=== PATIENT | female | born 1960 | race Caucasian/White ===

== ENCOUNTER 2017-09-06 18:07 | Emergency (ER) | payer OTHER ==
--- NOTE | 2017-09-06 18:21 | EDM.PDOC ---
ED HPI GENERAL MEDICAL PROBLEM - General Stated Complaint: HEAVY BLEEDING Time Seen by Provider: 09/06/17 18:15 Source of Information: Reports: Patient - History of Present Illness INITIAL COMMENTS - FREE TEXT/NARRATIVE: HISTORY AND PHYSICAL: History of present illness: [Patient presents via EMS Today she had a procedure with Dr. carlson for removal of a varicose vein, on her return from [place] she stopped for a potluck dinner and the wound was bleeding, she placed a tourniquet on this herself to stop the bleeding, on EMS arrival she did have some bleeding and bloodsoaked bandages going through Mor wrap and gauze padding. Procedure was at 9 AM this morning EMS provided a tourniquet as well and she presents as such hemodynamically stable Tourniquet and bandaging is removed and wounds are nonbleeding at this time, bandaging replaced, I have ordered some lab we will observe the patient for a period to see if there is any rebleeding , certainly were bloodsoaked however, the tourniquets were not required. however , there was minimal amount of blood maybe a couple ounces or less of actual blood loss. Again patient arrives hemodynamically stable with no fever nausea vomiting diarrhea constipation chest pain shortness breath headache dizziness palpitation no bowel or urine symptoms Patient observed in the ER, no further blood loss Review of systems: As per history of present illness and below otherwise all systems reviewed and negative. Past medical history: As per history of present illness and as reviewed below otherwise noncontributory. Surgical history: As per history of present illness and as reviewed below otherwise noncontributory. Social history: No reported history of drug or alcohol abuse. Family history: As per history of present illness and as reviewed below otherwise noncontributory. Physical exam: HEENT: Atraumatic, normocephalic, pupils reactive, negative for conjunctival pallor or scleral icterus, mucous membranes moist, throat clear, neck supple, nontender, trachea midline. Lungs: Clear to auscultation, breath sounds equal bilaterally, chest nontender. Heart: S1S2, regular, negative for clicks, rubs, or JVD. Abdomen: Soft, nondistended, nontender. Negative for masses or hepatosplenomegaly. Negative for costovertebral tenderness. Pelvis: Stable nontender. Genitourinary: Deferred. Rectal: Deferred. Extremities: Atraumatic, negative for cords or calf pain. Neurovascular unremarkable. Neuro: Awake, alert, oriented. Cranial nerves II through XII unremarkable. Cerebellum unremarkable. Motor and sensory unremarkable throughout. Exam nonfocal. Skin right lower extremity anterior lateral thigh multiple small superficial incisions sub- 1 cm inch or less clean dry intact Steri-Strips intact with excellent approximation, wounds are nonbleeding at this time entire limb is neurovascularly intact pulse 2+ Diagnostics: [CBC, INR ] Therapeutics: [] Bandaging re- applied, new Mor wrap re-applied Impression: []Post varicose vein stripping Hemoglobin 14 Definitive disposition and diagnosis as appropriate pending reevaluation and review of above. - Related Data Allergies Allergy/AdvReac Type Severity Reaction Status Date / Time No Known Allergies Allergy Verified 09/06/17 18:25 Home Meds: Home Meds traZODone 150 mg PO BEDTIME 04/14/14 [History] Past Medical History Respiratory History: Reports: Other (See Below) Other Respiratory History: bronchitis Gastrointestinal History: Reports: Hepatitis, Other (See Below) Other Gastrointestinal History: occasional heartburn, hepatitis C in the past and has been treated Genitourinary History: Reports: None [employer]ESS[employer] History: Reports: Endocrine/Metabolic History: Reports: Obesity/BMI 30+ - Past Surgical History Head Surgeries/Procedures: Reports: None Female Surgical History: Reports: Hysterectomy Other Female Surgeries/Procedures: hx hysterectomy and bladder surgery Social & Family History - Family History Family Medical History: Noncontributory - Tobacco Use Smoking Status *Q: Former Smoker Month Tobacco Last Used: quit smoking over 4 yrs ago Second Hand Smoke Exposure: No - Alcohol Use Days Per Week of Alcohol Use: 0 - Recreational Drug Use Recreational Drug Use: No ED ROS GENERAL - Review of Systems Review Of Systems: ROS reveals no pertinent complaints other than HPI. ED EXAM, GENERAL - Physical Exam Exam: See Below Course - Vital Signs Last Recorded V/S: Last Vital Signs Temp 36.6 C 09/06/17 18:21 Pulse 113 H 09/06/17 18:21 Resp 18 09/06/17 18:21 BP 152/88 H 09/06/17 18:21 Pulse Ox 95 09/06/17 18:21 - Orders/Labs/Meds Orders: Active Orders 24 hr Category Date Time Status INR,PT,PROTHROMBIN TIME [COAG] Stat Lab 09/06/17 18:10 Received Labs: Laboratory Tests 09/06/17 Range/Units 18:10 WBC 6.13 (4.0-11.0) K/uL RBC 4.86 (4.30-5.90) M/uL Hgb 14.3 (12.0-16.0) g/dL Hct 42.6 (36.0-46.0) % MCV 87.7 (80.0-98.0) fL MCH 29.4 (27.0-32.0) pg MCHC 33.6 (31.0-37.0) g/dL RDW Std Deviation 45.3 (28.0-62.0) fl RDW Coeff of [place] 14 (11.0-15.0) % Plt Count 162 (150-400) K/uL MPV 12.20 H (7.40-12.00) fL Neut % (Auto) 73.4 (48.0-80.0) % Lymph % (Auto) 21.2 (16.0-40.0) % [place] % (Auto) 4.9 (0.0-15.0) % Eos % (Auto) 0.2 (0.0-7.0) % Baso % (Auto) 0.3 (0.0-1.5) % Neut # (Auto) 4.5 (1.4-5.7) K/uL Lymph # (Auto) 1.3 (0.6-2.4) K/uL [place] # (Auto) 0.3 (0.0-0.8) K/uL Eos # (Auto) 0.0 (0.0-0.7) K/uL Baso # (Auto) 0.0 (0.0-0.1) K/uL Nucleated RBC % 0.0 /100WBC Nucleated RBCs # 0 K/uL Departure - Departure Time of Disposition: 18:40 Disposition: Home, Self-Care 01 Condition: Good Clinical Impression: Bleeding - Discharge Information Additional Instructions: If bandaging becomes bloodsoaked change bandaging as needed Return if symptoms persist or worsen If significant bleeding develops again apply pressure and return to emergency room Follow-up with Dr. Carlson as scheduled The following information is given to patients seen in the emergency department who are being discharged to home. This information is to outline your options for follow-up care. We provide all patients seen in our emergency department with a follow-up referral. The need for follow-up, as well as the timing and circumstances, are variable depending upon the specifics of your emergency department visit. If you don't have a primary care physician on staff, we will provide you with a referral. We always advise you to contact your personal physician following an emergency department visit to inform them of the circumstance of the visit and for follow-up with them and/or the need for any referrals to a consulting specialist. The emergency department will also refer you to a specialist when appropriate. This referral assures that you have the opportunity for follow-up care with a specialist. All of these measure are taken in an effort to provide you with optimal care, which includes your follow-up. Under all circumstances we always encourage you to contact your private physician who remains a resource for coordinating your care. When calling for follow-up care, please make the office aware that this follow-up is from your recent emergency room visit. If for any reason you are refused follow-up, please contact the [facility] emergency department at and asked to speak to the emergency department charge nurse. - My Orders Last 24 Hours: My Active Orders 09/06/17 18:10 INR,PT,PROTHROMBIN TIME [COAG] Stat - Assessment/Plan Last 24 Hours: My Active Orders 09/06/17 18:10 INR,PT,PROTHROMBIN TIME [COAG] Stat
[2017-09-06 19:15] VITALS: BP 125/72
== END 2017-09-06 19:12 | disposition home or self-care (01) ==
LOC: MW.ED 18:07
DX: I97.618 Postprocedural hemorrhage of a circulatory system organ or structure following other circulatory system procedure (principal); E66.9 Obesity, unspecified; Z87.891 Personal history of nicotine dependence
CPT/HCPCS: 36415; 85025; 85610; 99284

== ENCOUNTER 2017-12-22 09:59 | Emergency (ER) | payer OTHER ==
--- NOTE | 2017-12-22 10:23 | EDM.PDOC ---
ED HPI GENERAL MEDICAL PROBLEM - General Chief Complaint: Genitourinary Problem Stated Complaint: KIDNEY Time Seen by Provider: 12/22/17 10:06 Source of Information: Reports: Patient History Limitations: Reports: No Limitations - History of Present Illness INITIAL COMMENTS - FREE TEXT/NARRATIVE: HISTORY AND PHYSICAL: History of present illness: Patient is a 57-year-old female who presents to the emergency room today with complaints of left flank pain. This has been going on for the past 3 days, reports it is worse when lying flat in bed. She does note some frequency with urination but denies dysuria. Denies any increased pain with flexion or extension twisting side to side. She does report that she slipped and fell on the ice approximately one week ago (didn't hit head, no LOC) but did not start having pain until the last 3 days. Denies any numbness or tingling to her lower extremities. Denies hematuria, fever or chills. No change in bowel pattern. Denies any chest pain, shortness of breath, abdominal pain, nausea, or vomiting. Review of systems: As per history of present illness and below otherwise all systems reviewed and negative. Past medical history: As per history of present illness and as reviewed below otherwise noncontributory. Surgical history: As per history of present illness and as reviewed below otherwise noncontributory. Social history: No reported history of drug or alcohol abuse. Family history: As per history of present illness and as reviewed below otherwise noncontributory. Physical exam: General: Nontoxic-appearing 57-year-old female. Alert and oriented. Appears in no acute distress. HEENT: Atraumatic, normocephalic, pupils reactive, negative for conjunctival pallor or scleral icterus, mucous membranes moist, throat clear, neck supple, nontender, trachea midline. Lungs: Clear to auscultation, breath sounds equal bilaterally, chest nontender. Heart: S1S2, regular, negative for clicks, rubs, or JVD. Abdomen: Soft, nondistended, nontender. Negative for masses or hepatosplenomegaly. Negative for costovertebral tenderness. Pelvis: Stable nontender. Genitourinary: Deferred. Rectal: Deferred. C-Spine/Back: Pinpoint vertebral tenderness upon palpation. Able to ambulate on heels and toes without difficulty. No change in urinary/bowel pattern. Extremities: Atraumatic, negative for cords or calf pain. Neurovascular unremarkable. Neuro: Awake, alert, oriented. Cranial nerves II through XII unremarkable. Cerebellum unremarkable. Motor and sensory unremarkable throughout. Exam nonfocal. Urinalysis is normal with no sign of a UTI. We'll do a CBC, CMP and a CT of the abdomen and pelvis to look for kidney stone. Patient states that as she got undressed and placed in a gown, she noticed some soft tissue swelling below the left flank. I am able to identify a slight diffuse area of soft tissue swelling (not firm), there is no bruising. Patient is agreeable to the labs and CT. CT of the abdomen and pelvis shows no kidney stone or obstructive uropathy and normal appendix. The CBC, CMP and UA are within normal limits as well. The results were shared with the patient. Will treat as a muscular strain. Discussed with patient that if she continues to have pain and discomfort that she should follow up with her primary care provider. She voices understanding and is agreeable to plan of care. Denies any questions at this time. Flexeril 10mg TID PRN (Disp #12) and Cataflam 50mg TID PRN (Disp #20) Diagnostics: UA, CBC, CMP, CT abd/pelvis w/o Therapeutics: IV fluid, toradol, Jackson Impression: #1 Left flank pain #2 Muscular Strain Plan: 1. Please take the medications as prescribed. May cause drowsiness so do not take while driving or needing to be functioning outside of work. Please apply gentle heat on and off throughout the day. 2. Follow-up with your primary care provider in the next couple days. Return to the ED as needed and as discussed. Definitive disposition and diagnosis as appropriate pending reevaluation and review of above. Duration: Day(s): Location: Reports: Back left flank Pain Score (Numeric/FACES): 8 - Related Data Allergies Allergy/AdvReac Type Severity Reaction Status Date / Time No Known Allergies Allergy Verified 12/22/17 10:29 Home Meds: Home Meds traZODone 150 mg PO BEDTIME 04/14/14 [History] metFORMIN [Glucophage XR] 500 mg PO DAILY 12/22/17 [History] Past Medical History HEENT History: Reports: Impaired Vision Respiratory History: Reports: Other (See Below) Other Respiratory History: bronchitis Gastrointestinal History: Reports: Hepatitis, Other (See Below) Other Gastrointestinal History: occasional heartburn, hepatitis C in the past and has been treated Genitourinary History: Reports: None [employer]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: Endocrine/Metabolic History: Reports: Obesity/BMI 30+ Other Hematologic History: varicose vein surgery - Infectious Disease History Infectious Disease History: Reports: Hepatitis C Other Infectious Disease History: hepatitis cured in 2015 - Past Surgical History Head Surgeries/Procedures: Reports: None Female Surgical History: Reports: Hysterectomy Other Female Surgeries/Procedures: hx hysterectomy and bladder surgery Social & Family History - Family History Family Medical History: Noncontributory - Tobacco Use Smoking Status *Q: Former Smoker Month Tobacco Last Used: quit smoking over 4 yrs ago Second Hand Smoke Exposure: No - Caffeine Use Caffeine Use: Reports: None - Alcohol Use Days Per Week of Alcohol Use: 0 - Recreational Drug Use Recreational Drug Use: No ED ROS GENERAL - Review of Systems Review Of Systems: ROS reveals no pertinent complaints other than HPI. ED EXAM, RENAL/ - Physical Exam Exam: See Below (See dictation) Course - Vital Signs Last Recorded V/S: Last Vital Signs Temp 97.7 F 12/22/17 10:30 Pulse 83 12/22/17 10:30 Resp 18 12/22/17 10:30 BP 109/70 12/22/17 10:30 Pulse Ox 97 12/22/17 10:30 - Orders/Labs/Meds Orders: Active Orders 24 hr Category Date Time Status Abdomen Pelvis wo Cont [CT] Stat Exams 12/22/17 10:38 Taken Labs: Laboratory Tests 12/22/17 12/22/17 12/22/17 Range/Units 10:15 10:44 10:44 WBC 8.54 (4.0-11.0) K/uL RBC 5.71 (4.30-5.90) M/uL Hgb 16.0 (12.0-16.0) g/dL Hct 46.8 H (36.0-46.0) % MCV 82.0 (80.0-98.0) fL MCH 28.0 (27.0-32.0) pg MCHC 34.2 (31.0-37.0) g/dL RDW Std Deviation 41.3 (28.0-62.0) fl RDW Coeff of [place] 14 (11.0-15.0) % Plt Count 169 (150-400) K/uL MPV 10.90 (7.40-12.00) fL Neut % (Auto) 60.5 (48.0-80.0) % Lymph % (Auto) 29.6 (16.0-40.0) % [place] % (Auto) 7.7 (0.0-15.0) % Eos % (Auto) 1.6 (0.0-7.0) % Baso % (Auto) 0.6 (0.0-1.5) % Neut # (Auto) 5.2 (1.4-5.7) K/uL Lymph # (Auto) 2.5 H (0.6-2.4) K/uL [place] # (Auto) 0.7 (0.0-0.8) K/uL Eos # (Auto) 0.1 (0.0-0.7) K/uL Baso # (Auto) 0.1 (0.0-0.1) K/uL Nucleated RBC % 0.0 /100WBC Nucleated RBCs # 0 K/uL Sodium 139 (136-146) mmol/L Potassium 4.5 (3.5-5.1) mmol/L Chloride 107 (98-110) mmol/L Carbon Dioxide 19 L (21-31) mmol/L BUN 15 (6.0-23.0) mg/dL Creatinine 0.7 (0.6-1.5) mg/dL Est Cr Clr Drug Dosing 85.19 mL/min Estimated GFR (MDRD) > 60.0 ml/min Glucose 108 (60-110) mg/dL Calcium 9.3 (8.8-10.8) mg/dL Total Bilirubin 0.5 (0.1-1.5) mg/dL AST 27 (5-40) IU/L ALT 27 (8-54) IU/L Alkaline Phosphatase 72 (40-150) Total Protein 7.3 (6.0-8.0) g/dL Albumin 4.4 (3.5-5.0) g/dL Globulin 2.9 (2.0-3.5) g/dL Albumin/Globulin Ratio 1.5 (1.3-2.8) Urine Color YELLOW Urine Appearance CLEAR Urine pH 6.0 (5.0-8.0) Ur Specific [place] <= 1.005 (1.001-1.035) Urine Protein NEGATIVE (NEGATIVE) mg/dL Urine Glucose (UA) NEGATIVE (NEGATIVE) mg/dL Urine Ketones NEGATIVE (NEGATIVE) mg/dL Urine Occult Blood NEGATIVE (NEGATIVE) Urine Nitrite NEGATIVE (NEGATIVE) Urine Bilirubin NEGATIVE (NEGATIVE) Urine Urobilinogen 0.2 (<2.0) EU/dL Ur Leukocyte Esterase NEGATIVE (NEGATIVE) Urine RBC 0-1 (0-2/HPF) Urine WBC 0-1 (0-5/HPF) Ur Epithelial Cells FEW (NONE-FEW) Urine Bacteria RARE (NEGATIVE) Meds: Medications Discontinued Medications Generic Name Dose Route Start Last Admin Trade Name Freq PRN Reason Stop Dose Admin Sodium Chloride 1,000 mls @ 999 mls/hr 12/22/17 10:40 12/22/17 10:58 Normal Saline IV 12/22/17 11:40 999 mls/hr STAT ONE Administration Ketorolac Tromethamine 30 mg 12/22/17 10:40 12/22/17 10:58 Toradol IVPUSH 12/22/17 10:41 30 mg ONETIME ONE Administration Departure - Departure Time of Disposition: 11:46 Disposition: Home, Self-Care 01 Clinical Impression: Flank pain - Discharge Information Referrals: PCP,None [Primary Care Provider] - Forms: ED Department Discharge Additional Instructions: My general discharge The following information is given to patients seen in the emergency department who are being discharged to home. This information is to outline your options for follow-up care. We provide all patients seen in our emergency department with a follow-up referral. The need for follow-up, as well as the timing and circumstances, are variable depending upon the specifics of your emergency department visit. If you don't have a primary care physician on staff, we will provide you with a referral. We always advise you to contact your personal physician following an emergency department visit to inform them of the circumstance of the visit and for follow-up with them and/or the need for any referrals to a consulting specialist. The emergency department will also refer you to a specialist when appropriate. This referral assures that you have the opportunity for follow-up care with a specialist. All of these measure are taken in an effort to provide you with optimal care, which includes your follow-up. Under all circumstances we always encourage you to contact your private physician who remains a resource for coordinating your care. When calling for follow-up care, please make the office aware that this follow-up is from your recent emergency room visit. If for any reason you are refused follow-up, please contact the [facility] Emergency Department at and asked to speak to the emergency department charge nurse. [facility] [address] [place] [id number] 1. Please take the medications as prescribed. May cause drowsiness, so do not take while driving or needing to be functioning outside of work. Please apply gentle heat on and off throughout the day. 2. Follow-up with your primary care provider in the next couple days. Return to the ED as needed and as discussed. - My Orders Last 24 Hours: My Active Orders 12/22/17 10:38 Abdomen Pelvis wo Cont [CT] Stat - Assessment/Plan Last 24 Hours: My Active Orders 12/22/17 10:38 Abdomen Pelvis wo Cont [CT] Stat
[2017-12-22] MEDS ORDERED: Sodium Chloride 0.9% 1,000 ML IV ONE (10:40)
[2017-12-22] MEDS ORDERED: Ketorolac 30 MG/ML SDV IVPUSH ONE (10:40)
[2017-12-22 11:18] LABS: CHLORIDE,CL 107 mmol/L (98-110); SODIUM,NA 139 mmol/L (136-146)
[2017-12-22] MEDS ORDERED: Acetaminophen/HYDROcodone 325-5 MG Tab PO ONE (11:49)
[2017-12-22 12:26] VITALS: BP 134/80
--- NOTE | 2017-12-24 14:07 | CT ---
EXAM DATE: 12/22/17 PATIENT'S AGE: 57 Patient: AGATA OLIVO Facility: [place], [place] Site . Site : 1960 Study: CT Abdomen/Pelvis [id number] 11:25:23 AM Ordering Physician: Doctor Mcdonald Final Report: INDICATION: Left flank pain. COMPARISON: None. TECHNIQUE: CT abdomen and pelvis without intravenous or oral contrast; coronal and sagittal reformats. FINDINGS: No abnormal intra pulmonary nodular densities through the lung bases. No evidence of pleural effusion. Normal size cardiac silhouette without any evidence of pericardial effusion. No focal hepatic or splenic pathology. No pancreatic pathology. Gallbladder is unremarkable. No adrenal pathology. No kidney stones. No obstructive uropathy or perinephric pathology. No evidence of dilatation of the ureters on either side. No ureteral stones. CT study of the pelvis is unremarkable. Normal appendix. Status Post hysterectomy. IMPRESSION: 1. Status post hysterectomy. 2. Normal appendix. 3. No kidney stones or obstructive uropathy. 4. Negative unenhanced CT abdomen and pelvis. Please note that all CT scans at this facility use dose modulation, iterative reconstruction, and/or weight-based dosing when appropriate to reduce radiation dose to as low as reasonably achievable. Dictated by Josephine Mcfarlane MD @ Dec 22 2017 11:27AM (Electronic Signature) Report Signed by Proxy. [facility]ITAL[facility]uddy
== END 2017-12-22 12:24 | disposition home or self-care (01) ==
LOC: MW.ED 09:59
DX: S39.011A Strain of muscle, fascia and tendon of abdomen, initial encounter (principal); Z79.84 Long term (current) use of oral hypoglycemic drugs; Z87.891 Personal history of nicotine dependence; X58.XXXA Exposure to other specified factors, initial encounter
CPT/HCPCS: 36415; 74176; 80053; 81001; 85025; 96361; 96374; 99284; A9270; J1885; J7040

== ENCOUNTER 2022-09-05 10:14 | Emergency (ER) | payer OTHER ==
[2022-09-05 11:56] LABS: CARBON DIOXIDE,CO2 25.2 mmol/L (21.0-32.0); POTASSIUM,K 4.1 mmol/L (3.5-5.1)
[2022-09-05 12:47] VITALS: BP 126/80; PULSE 62
== END 2022-09-05 12:35 | disposition home or self-care (01) ==
LOC: MW.ED 10:14
DX: M25.512 Pain in left shoulder (principal); E66.9 Obesity, unspecified; Z68.27 Body mass index [BMI] 27.0-27.9, adult
CPT/HCPCS: 36415; 71045; 71045-26; 73030-26-LT; 73030-LT; 80053; 84484; 85025; 93005; 93010; 99284